=== PATIENT | female | born 1945 | race Caucasian/White ===

== ENCOUNTER 2021-10-23 15:28 | Outpatient (CLI) | payer MEDICARE, SELFPAY ==
[2021-10-23 17:56] LABS: Albumin* 4.5 g/dL (3.3-5.0); Chloride* 107 mmol/L (96-114)
[2021-10-23 17:57] LABS: Potassium* 4.3 mmol/L (3.6-5.1); Sodium* 141 mmol/L (135-149)
[2021-10-23 17:59] LABS: Carbon Dioxide* 26 mmol/L (20-32); Cholesterol* 203 mg/dL (90-199); Creatinine* 0.9 mg/dL (0.5-1.5); Estimated Glomerular Filt Rate 65 ml/min
[2021-10-23 18:00] LABS: Alanine Aminotransferase* 17 U/L (4-35); Alkaline Phosphatase* 60 U/L (40-150); Aspartate Amino Transferase* 32 U/L (12-35); Bilirubin Total* 0.8 mg/dL (0.1-1.5); Blood Urea Nitrogen* 25 mg/dL (7-30); Calcium* 9.5 mg/dL (8.4-10.6); Glucose* 105 mg/dL (60-115); HDL Cholesterol* 62 mg/dL (>=50); LDL Cholesterol Calculated 98 mg/dL (<100); Total Protein* 7.1 g/dL (6.0-8.3); Triglycerides* 215 mg/dL (40-149)
[2021-10-23 18:52] LABS: Vitamin B12* 431 pg/mL (243-894)
== END 2021-10-23 15:29 | disposition home or self-care (01) ==
PROVIDERS: PCP Internal Medicine; Visit Provider Internal Medicine
DX: Z00.00 Encounter for general adult medical examination without abnormal findings (principal); F43.20 Adjustment disorder, unspecified; Z13.6 Encounter for screening for cardiovascular disorders
CPT/HCPCS: 80053; 80061; 82607; 84443

== ENCOUNTER 2022-01-09 09:39 | Emergency (ER) | payer MEDICARE, SELFPAY ==
[2022-01-09 09:48] VITALS: BP 164/70; PULSE 75; RESP 18; TEMP 36.4; O2SAT 97; BMI 23.2
--- NOTE | 2022-01-09 10:05 | CRLHL7_ITS ---
For Patients: As a result of the Century Cures Act, medical imaging exams and procedure reports are released immediately into your electronic medical record. You may view this report before your referring provider. If you have questions, please contact your health care provider. INDICATION: Vomiting, history of breast cancer. TECHNIQUE: CT abdomen and pelvis with 66 cc Omnipaque 370 IV contrast. COMPARISON: None. FINDINGS: The liver is normal in size, shape and attenuation. Few scattered subcentimeter hypodense lesions throughout the liver which are too small to characterize. Gallbladder and biliary tree are normal. The spleen, adrenal glands and pancreas are within normal limits. The kidneys are unremarkable. Small hiatal hernia. The stomach is decompressed. No evidence of bowel obstruction. Scattered colonic diverticula with mild inflammation adjacent to few diverticula within the transverse colon concerning for acute diverticulitis. No evidence of rosalia perforation or adjacent abscess. No free air. Small amount of free fluid in the pelvis. Status post hysterectomy. The lower chest is unremarkable. Mild multilevel degenerative spondylosis without acute fracture. Small sclerotic lesions within the left ilium and left sacrum. IMPRESSION: Scattered colonic diverticula with mild inflammation adjacent to few diverticula within the transverse colon concerning for acute diverticulitis. No evidence of rosalia perforation or adjacent abscess. There is also some mild wall thickening in this area which may be reactive from diverticulitis but would recommend correlation with colonoscopy history to exclude underlying mass. Small sclerotic lesions within the left ilium and left sacrum. Few scattered subcentimeter hypodense lesions throughout the liver which are too small to characterize. The above-noted osseous and hepatic lesions are statistically favored to be benign but in the setting of cancer history a metastatic lesion cannot entirely be excluded. Recommend correlation with previous imaging if available. Continued attention on follow-up is recommended. Consider bone scan if there is concern for osseous metastasis. Small hiatal hernia. Please note that all CT scans at this facility use dose modulation, iterative reconstruction, and/or weight-based dosing when appropriate to reduce radiation dose to as low as reasonably achievable. Dictated by Chuckie Colvin MD @ 01/09/2022 12:20:57 PM (Electronically Signed)
--- NOTE | 2022-01-09 10:06 | ED_ITS ---
HPI - Nausea/Vomiting/Diarrhea General Chief complaint: Nausea/Vomiting Stated complaint: vomiting,nauseous Time Seen by Provider: 01/09/22 09:53 History of Present Illness HPI Narrative: This 76-year-old female comes in reporting nausea and vomiting over the past day and half for so. She has not had any fevers. She does not have diarrhea. She did have a brief episode of pain but this has resolved. She does have a dry mouth. She has been taking Pepto-Bismol daily for the past couple weeks and has noted that her tongue is black at times in her stools are dark related to this. She does not report any lightheadedness or shortness of breath. She does states that she feels something different in her mid abdomen at night when laying down. This has been present for the past few months. She states that it is not a painful thing but wonders what this might be. Related Data Home Medications Medication Instructions Recorded Confirmed calcium carb-magnesium carb 1 tab PO DAILY 10/23/21 11/27/21 cholecalciferol (vitamin D3) 50 2,000 unit PO DAILY 10/23/21 11/27/21 mcg (2,000 unit) tablet ibuprofen 200 mg capsule 200 mg PO .Q6h Prn 10/23/21 11/27/21 Previous Rx's Medication Instructions Recorded fluoxetine 10 mg tablet 10 mg PO QAM #90 tabs 10/23/21 ciprofloxacin HCl 500 mg tablet 500 mg PO BID #10 tabs 01/09/22 (Cipro) metronidazole 500 mg tablet 500 mg PO BID 10 days #20 tabs 01/09/22 ondansetron 4 mg disintegrating 4 mg PO Q6H #20 tabs 01/09/22 tablet trazodone 50 mg tablet 50 mg PO QHS #30 tabs 01/09/22 Allergies Allergy/AdvReac Type Severity Reaction Status Date / Time No Known Allergies Allergy Unverified 01/09/22 11:46 Review of Systems Status of ROS: Reports: 10 or more systems reviewed and unremarkable except as noted in History and below Narrative: Constitutional: No fevers, no weight gain or loss. Eyes: No discharge. No vision changes. HENT: No congestion, no sore throat, no ear pain. Cardiovascular: No chest pain, no palpitations. Respiratory: No shortness of breath, no wheezes, no cough. Gastrointestinal: No abdominal pain, no diarrhea. Nausea and vomiting. Genitourinary: No dysuria, no hematuria. Musculoskeletal: Normal range of motion. Skin: No rashes, no pruritis. Neurological: No dizziness, weakness, sensory change, speech change. Endo/Heme/Allergies: No bruising or bleeding. No polydipsia. Pysch: no suicidality, no anxiety, no insomnia. All other systems reviewed and are negative. [facility] Medical History (Updated 01/09/22 @ 13:48 by Perez Loera MD) History of breast cancer Surgical History (Updated 10/23/21 @ 15:08 by Siria Johnson MD) History of appendectomy (1994) History of bilateral cataract extraction (~2018) History of breast biopsy (03/19/11) History of tonsillectomy (03/19/11) History of total hysterectomy with bilateral salpingo-oophorectomy (BSO) (1994) Status post bilateral mastectomy (2015) Social History Smoking Status: Never smoker Do you use any of these nicotine containing products: None How often do you have a drink containing alcohol: never AUDIT-C Alcohol total score: 0 Non-prescribed substance use: denies use Little interest or pleasure in doing things: not at all Feeling down, depressed, or hopeless: several days Exam Narrative: Exam Narrative: Constitutional: Well-developed, well-nourished, no acute distress. HEENT: Normocephalic, atraumatic. Neck: Normal range of motion. Nontender. Supple. Heart: Regular. No murmurs. Normal rate. Intact distal pulses. Lungs: Clear to auscultation. No chest discomfort. No wheezes, rhonchi, or rales. Abdomen: Normal bowel sounds. Nontender. No rebound tenderness. Genitalia: Deferred. Back: No midline tenderness. Normal range of motion. Extremities: Normal range of motion. No injury. Skin: Intact. No rash. Warm. No erythema or pallor. Neurologic: No altered sensation. No weakness. Alert and oriented. Psychiatric: No suicidality. No anxiety or depression. No insomnia. Nursing notes and vitals signs are reviewed. Const: Vital Signs, click to edit/add: Vital Signs - 24 hr 01/09/22 09:48 Temperature 97.5 F L Pulse Rate [Right Pulse Oximeter] 75 Respiratory Rate 18 Blood Pressure [Ri ght Upper Arm] 164/70 H Pulse Oximetry 97 Oxygen Delivery Me thod Room Air Course Vital Signs Vital signs: Initial Vital Signs Temperature 97.5 F L 01/09/22 09:48 Temperature Source Temporal Artery Scan 01/09/22 09:48 Pulse Rate 75 01/09/22 09:48 Respiratory Rate 18 01/09/22 09:48 Blood Pressure 164/70 H 01/09/22 09:48 Blood Pressure Mean 101 01/09/22 09:48 Blood Pressure Position Sitting 01/09/22 09:48 Pulse Oximetry 97 01/09/22 09:48 Oxygen Delivery Method 01/09/22 09:48 Vital Signs Temperature 97.5 F L 01/09/22 09:48 Pulse Rate 75 01/09/22 09:48 Respiratory Rate 18 01/09/22 09:48 Blood Pressure 164/70 H 01/09/22 09:48 Pulse Oximetry 97 01/09/22 09:48 Oxygen Delivery Method 01/09/22 09:48 Temperature 97.5 F L 01/09/22 09:48 Pulse Rate 75 01/09/22 09:48 Respiratory Rate 18 01/09/22 09:48 Blood Pressure 164/70 H 01/09/22 09:48 Pulse Oximetry 97 01/09/22 09:48 Oxygen Delivery Method 01/09/22 09:48 MDM - Nausea/Vomiting/Diarrhea MDM Narrative Medical decision making narrative: This patient comes in with nausea and vomiting for the past several days. An IV was established where she received a total of 2 L of normal saline. She also received Zofran which brought relief to her nausea and vomiting. Lab results returned with normal white count. A CT scan of the abdomen and pelvis returns with some findings suggestive of acute diverticulitis. The patient really does not have abdominal pain and other symptoms more typical of diverticulitis. Ad ditionally she has a normal white count. I did prescribe Cipro and Flagyl to attend to these findings and hopefully it will help her feel better with her current symptoms. She also received prescription for Zofran. She was reporting problems with insomnia and has been using [id number] medicines with some undesirable side effects of feeling jittery in the morning. I did prescribe some tablets of trazodone and advised her to follow-up with her primary physician in this regard. Lab Data Labs: Lab Results 01/09/22 01/09/22 Range/Units 10:25 10:25 WBC 6.79 (4.50-11.00) K/uL RBC 4.67 (4.00-5.20) m/uL Hgb 14.6 (12.0-16.0) gm/dL Hct 43.3 (33.0-51.0) % MCV 93 (80-100) fL MCH 31 (26-34) pg MCHC 34 (32-36) gm/dL RDW Coeff of Tani 11.5 (11.5-15.5) % Plt Count 184 (140-440) K/uL Neut % (Auto) 82.5 H (42.0-72.0) % Lymph % (Auto) 11.8 L (20-44) % Nicholas % (Auto) 5.3 (0.0-11.0) % Eos % (Auto) 0.0 (0.0-7.0) % Baso % (Auto) 0.3 (0.0-3.0) % Neut # (Auto) 5.60 (1.7-7.0) K/uL Lymph # (Auto) 0.80 L (0.90-2.90) K/uL Nicholas # (Auto) 0.40 (0.00-0.90) K/UL Eos # (Auto) 0.00 (0.00-0.50) K/uL Baso # (Auto) 0.02 (0.00-0.30) K/uL Abs Immat Gran (auto) 0.01 (0.00-0.30) K/uL Sodium 140 (135-149) mmol/L Potassium 3.7 (3.6-5.1) mmol/L Chloride 106 (96-114) mmol/L Carbon Dioxide 24 (20-32) mmol/L BUN 22 (7-30) mg/dL Creatinine 0.7 (0.5-1.5) mg/dL Estimated Creat Clear 40.04 Estimated GFR 88 ml/min Glucose 114 (60-115) mg/dL Calcium 9.7 (8.4-10.6) mg/dL Total Bilirubin 1.8 H (0.1-1.5) mg/dL Direct Bilirubin 0.0 (0.0-0.5) mg/dL AST 38 H (12-35) U/L ALT 24 (4-35) U/L Alkaline Phosphatase 58 (40-150) U/L Total Protein 7.3 (6.0-8.3) g/dL Albumin 4.6 (3.3-5.0) g/dL Imaging Data CT scan - abdomen: Radiologist's impression: Scattered colonic diverticula with mild inflammation adjacent to few diverticula within the transverse colon concerning for acute diverticulitis. No evidence of rosalia perforation or adjacent abscess. There is also some mild wall thickening in this area which may be reactive from diverticulitis but would recommend correlation with colonoscopy history to exclude underlying mass. Small sclerotic lesions within the left ilium and left sacrum. Few scattered subcentimeter hypodense lesions throughout the liver which are too small to characterize. The above-noted osseous and hepatic lesions are statistically favored to be benign but in the setting of cancer history a metastatic lesion cannot entirely be excluded. Recommend correlation with previous imaging if available. Continued attention on follow-up is recommended. Consider bone scan if there is concern for osseous metastasis. Small hiatal hernia. Discharge Plan Discharge Clinical Impression: Insomnia, Diverticulitis Patient Disposition: Home, Self-Care Condition: Stable Additional Instructions: Take medications as prescribed. Increase diet as tolerated. Follow up with MD or return if worsening. Prescriptions: New ciprofloxacin HCl [Cipro] 500 mg tablet 500 mg PO BID Qty: 10 0RF metronidazole 500 mg tablet 500 mg PO BID 10 Days Qty: 20 0RF ondansetron 4 mg tablet,disintegrating 4 mg PO Q6H Qty: 20 0RF trazodone 50 mg tablet 50 mg PO QHS Qty: 30 2RF No Action cholecalciferol (vitamin D3) 50 mcg (2,000 unit) tablet 2,000 unit PO DAILY Rx Instructions: On hold ibuprofen 200 mg capsule 200 mg PO .Q6h Prn calcium carb-magnesium carb 1 tab PO DAILY fluoxetine 10 mg tablet 10 mg PO QAM Qty: 90 3RF Follow Up/Referrals: Siria Johnson MD [Primary Care Provider] - Stand Alone Forms: [facility] Inst[facility]
--- OUTSIDE RECORDS SUMMARY | 2022-01-09 10:14 | XMS_ITS | Clinical Summary ---
:1945 Author Organization [employer] [facility] [place] [address] Care Team Providers Name Role Phone Siria Johnson MD Primary Care Provider Allergies No known active allergies Medications Medication Sig Dispensed Refills Start Date End Date Status letrozole (FEMARA) Take 2.5 mg by 0 Active 2.5 mg tablet mouth once daily. vitamin e 400 unit Take 400 Units by 0 Active capsule mouth once daily. calcium carbonate-mag Take 1 Tab by mouth 0 Active hydroxid 1,000-200 mg once daily. chew cholecalciferol Take 4,000 Units by 0 Active (VITAMIN D-3) 2,000 mouth once daily. unit capsule multivitamin (MVI) Take 1 tablet by 0 Active tablet mouth once daily. HYDROcodone-acetamino Take 1-2 tablets by 20 tablet 0 10/01/19 17 Active phen, 5-325 mg, mouth every 4 hours (NORCO) per if needed for Pain tabletIndications: Max acetaminophen Displacement of dose: 4000 mg in 24 breast implant, hrs. subsequent encounter ondansetron (ZOFRAN Place 1 tablet on 10 tablet 0 09/30/2016 Active ODT) 4 mg the tongue every 6 disintegrating hours if needed for tabletIndications: Nausea/Vomiting Displacement of (May take every 4-6 breast implant, hours.). 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 7 Social History Tobacco Use Types Packs/Day Years Used Date Never Smoker Alcohol Use Standard Drinks/Week Comments No 0 (1 standard drink = 0.6 oz pure alcoho l) Sex Assigned at Date Recorded Not on file Obstetrics History Last Filed Vital Signs Vital Sign Reading Time Taken Comments Blood Pressure 129/53 09/30/2016 11:45 AM CDT Pulse 78 09/30/2016 11:45 AM CDT Temperature 36.1 ??C (97 ??F) 09/30/2016 9:50 AM CDT Respiratory Rate 16 09/30/2016 11:45 AM CDT Oxygen Saturation 94% 09/30/2016 11:45 AM CDT Inhaled Oxygen Concentration - - Weight 57.9 kg (127 lb 10.3 oz) 09/30/2016 7:15 AM CDT Height 162.6 cm (5' 4) 09/30/2016 7:15 AM CDT Body Mass Index 21.91 09/30/2016 7:15 AM CDT Plan of Treatment Health Maintenance Due Date Last Done Comments COVID-19 vaccine series (#1) 1945 Tdap 06/24/1954 Depression screening for age 12+ 1955 Hepatitis C screening for age 18-79 06/24/1961 Tetanus booster 1963 Zoster (shingles) series for age 50+ (1 of 2) 06/24/1993 DEXA/DXA scan for age 65+ 06/24/2008 Pneumococcal series for age 65+ (1 - PCV) 06/24/2008 BMI (ht and wt on same day) for age 18+ 08/20/2017 08/21/19 17 Influenza for age 65+ 12/04/2021 Medical Devices Implanted Type Area Form Presser Device Shelf Model / Identifier Expiration Serial / Date Lot [id number] 225cc Memorygel Rnd High Smooth Silcn [[id number]] Left: [employer] [place] 12/02/2019 [id number] / Implanted: Qty: 1 on 05/20/2016 by Kyle Mendez MD at [facility] [employer] [id number] / Explanted: at [facility] (Quantity not on file) [id number] 325cc Memorygel Rnd High Smooth Silcn Left: [employer] [place] 01/08/2020 [id number] / Implanted: Qty: 1 on 09/30/2016 by Kyle Mendez MD at [facility] [employer] [id number] / Explanted: at [facility] (Quantity not on file) [id number] Results Not on filefrom Last 3 Months Insurance Payer Benefit Plan / Subscriber ID Effective Dates Phone Addre ss Type Group [employer] MEDIC[employer] [id number] 2016-Present [address] [place] [address] (Work) [id number] Advance Directives Latest Code Status on File Code Status Date Activated Date Inactivated Comments Full Code 09/30/2016 10:00 AM 09/30/2016 2:40 PM Full Code 09/30/2016 6:53 AM 09/30/2016 10:00 AM Full Code 05/20/2016 10:39 AM 05/20/2016 5:43 PM Full Code 05/20/2016 6:48 AM 05/20/2016 10:39 AM Care Teams Director Executive Communications Relationship Specialty Start Date End Date Siria Johnson MD PCP - General Internal Medicine 05/15/161999 [place], [place] [id number]
[2022-01-09] MEDS: 0.9 % SODIUM CHLORIDE 1000 ml 1,000 ML IV ×2 (10:31→12:44)
[2022-01-09] MEDS: ONDANSETRON 2 MG/ML inj 4 MG IVP (10:33)
[2022-01-09 10:48] VITALS: BP 148/67; PULSE 64; RESP 18; O2SAT 95
[2022-01-09 10:59] LABS: Albumin* 4.6 g/dL (3.3-5.0)
[2022-01-09 11:00] LABS: Chloride* 106 mmol/L (96-114); Potassium* 3.7 mmol/L (3.6-5.1); Sodium* 140 mmol/L (135-149)
[2022-01-09 11:01] LABS: Basophils Absolute Auto 0.02 K/uL (0.00-0.30); Basophils Percent Auto 0.3 % (0.0-3.0); Hematocrit 43.3 % (33.0-51.0); Hemoglobin* 14.6 gm/dL (12.0-16.0); Immature Granulocytes Abs Auto 0.01 K/uL (0.00-0.30); Lymphocytes Percent Auto 11.8 % (20-44); Mean Corpuscular HGB Conc 34 gm/dL (32-36); Mean Corpuscular Hemoglobin 31 pg (26-34); Mean Corpuscular Volume 93 fL (80-100); Monocytes Percent Auto 5.3 % (0.0-11.0); Neutrophils Percent Auto 82.5 % (42.0-72.0); Platelet Count* 184 K/uL (140-440); RDW Coefficient of Variation % 11.5 % (11.5-15.5); Red Blood Count 4.67 m/uL (4.00-5.20); White Blood Count* 6.79 K/uL (4.50-11.00)
[2022-01-09 11:02] LABS: Aspartate Amino Transferase* 38 U/L (12-35); Bilirubin Total* 1.8 mg/dL (0.1-1.5); Blood Urea Nitrogen* 22 mg/dL (7-30); Carbon Dioxide* 24 mmol/L (20-32); Creatinine* 0.7 mg/dL (0.5-1.5); Est. Creatinine Clearance* 40.04; Estimated Glomerular Filt Rate 88 ml/min; Total Protein* 7.3 g/dL (6.0-8.3)
[2022-01-09 11:03] LABS: Alanine Aminotransferase* 24 U/L (4-35); Alkaline Phosphatase* 58 U/L (40-150); Calcium* 9.7 mg/dL (8.4-10.6); Glucose* 114 mg/dL (60-115)
[2022-01-09 11:04] LABS: Slide Review Reflex No
[2022-01-09 12:00] VITALS: BP 140/59; RESP 18; O2SAT 94
[2022-01-09 13:30] VITALS: BP 138/66; RESP 18; O2SAT 96
== END 2022-01-09 14:07 | disposition home or self-care (01) ==
PROVIDERS: Emergency Provider Emergency Medicine Emergency Medical Services; PCP Internal Medicine
DX: G47.00 Insomnia, unspecified (principal); K57.92 Diverticulitis of intestine, part unspecified, without perforation or abscess without bleeding
CPT/HCPCS: 36415; 74177; 80048; 80076; 85025; 96374; 99284; 99285; J2405; J7030; Q9967

== ENCOUNTER 2022-01-11 03:25 | Emergency (ER) | payer MEDICARE, SELFPAY ==
[2022-01-11 03:50] VITALS: BP 163/77; PULSE 70; RESP 18; TEMP 36.7; O2SAT 99; BMI 24.0
[2022-01-11 04:00] VITALS: O2SAT 98
[2022-01-11] MEDS: 0.9 % SODIUM CHLORIDE 1000 ml 1,000 ML IV (04:15)
[2022-01-11] MEDS: LORazepam 2 MG/ML inj 0.5 MG IVP (04:15)
--- OUTSIDE RECORDS SUMMARY | 2022-01-11 05:07 | XMS_ITS | Clinical Summary ---
:1945 Author Organization [employer] [facility] [place] [address] Care Team Providers Name Role Phone Siria [...] 65+ 12/04/2021 Medical Devices Implanted Type Area Production Consultant Device Shelf Model / Identifier Expiration Serial / Date Lot [id number] 225cc Memorygel Rnd High Smooth Silcn [[id number]] Left: [employer] [place] 12/02/2019 [id number] / Implanted: Qty: 1 on 05/20/2016 by Kyle Mendez MD at [facility] [employer] [id number] / Explanted: at [facility] (Quantity not on file) [id number] 325cc Memorygel Rnd High Smooth Silcn Left: [employer] [place] 01/08/2020 [id number] / Implanted: Qty: 1 on 09/30/2016 by Kyle Mendez MD at [facility] [employer] [id number] / Explanted: at [facility] (Quantity not on file) [id number] Results Not on filefrom Last 3 Months Insurance Payer Benefit Plan / Subscriber ID Effective Dates Phone Addre ss Type Group [employer] MEDICARE [id number] 2016-Present [address] [place] [address] (Work) [id number] Advance Directives Latest Code Status on File Code Status Date Activated Date Inactivated Comments Full Code 09/30/2016 10:00 AM 09/30/2016 2:40 PM Full Code 09/30/2016 6:53 AM 09/30/2016 10:00 AM Full Code 05/20/2016 10:39 AM 05/20/2016 5:43 PM Full Code 05/20/2016 6:48 AM 05/20/2016 10:39 AM Care Teams Organ Pipe Maker Metal Relationship Specialty Start Date End Date Siria Johnson MD PCP - General Internal Medicine 05/15/161999 [place], [place] [id number]
--- NOTE | 2022-01-11 05:26 | CRLHL7_ITS ---
For Patients: As a result of the Century Cures Act, medical imaging exams and procedure reports are released immediately into your electronic medical record. You may view this report before your referring provider. If you have questions, please contact your health care provider. INDICATION: Epigastric pain. Previous history of bilateral mastectomy, hysterectomy, breast implants. COMPARISON: CT of the abdomen and pelvis from 01/09/2022. TECHNIQUE: CT examination of the chest, abdomen, and pelvis was performed with the uneventful intravenous administration of 69 cc of Isovue 370 while 3 mm thick axial sections were obtained from above the apices of the lungs through the symphysis pubis. Oral contrast was not administered. Please note that all CT scans at this facility use dose modulation, iterative reconstruction, and/or weight-based dosing when appropriate to reduce radiation dose to as low as reasonably achievable. FINDINGS: : In the chest, the lungs are clear with no sign of significant infiltrate or mass. There is excellent enhancement of the pulmonary arteries with no sign of pulmonary embolism. There is no sign of mediastinal or hilar mass or adenopathy. The heart is normal in appearance for the patient`s age. There is age appropriate appearance of the thoracic aorta and ascending great vessels. There is no sign of supraclavicular or axillary mass or adenopathy. Again seen are changes of bilateral mastectomy with bilateral breast implant placement. There is no sign of any leak from the implants. In the abdomen, the liver has stable appearance of a few small cysts. The liver is otherwise normal in appearance. The spleen, pancreas, and adrenals are normal in appearance. The kidneys are normal in appearance. The gallbladder is normal in appearance. The abdominal aorta is normal in caliber with no sign of dilatation. There is no sign of retroperitoneal mass or adenopathy. There is a stable small hiatal hernia. The rest of the stomach, loops of small bowel, and colon in the abdomen are otherwise normal in appearance. In the pelvis, the appendix is nonvisualized, but there is no sign of an inflammatory process in the area of the appendix. There is stable moderate sigmoid diverticulosis without evidence of diverticulitis. The previously seen minimal soft tissue stranding adjacent to the colonic diverticuli is no longer present, however there is a new small amount of free fluid in the pelvis, nonspecific. The loops of small bowel and rectum in the pelvis are otherwise normal in appearance. The uterus is again seen to be absent and the adnexal regions are normal in appearance. The urinary bladder is normal in appearance. There is no sign of pelvic or inguinal mass or adenopathy. There is no sign of free air or free fluid in the abdomen. There is no sign of free air or extraluminal air in the pelvis. There is no change in minimal posterior subluxation of L2 on L3 with mild L2-3 disc degenerative disease. Again seen is a mild inferior L1 endplate fracture. There is stable mild L3-4 and L4-5 disc degenerative disease. IMPRESSION: CT of the chest shows stable appearance of mastectomy and bilateral breast prosthesis placement. CT of the abdomen shows a stable small hiatal hernia. CT of the pelvis shows a mild sigmoid diverticulosis with no sign of diverticulitis. Resolution of previously seen minimal sigmoid diverticulitis. New small amount of free fluid in the pelvis, nonspecific. Please note that all CT scans at this facility use dose modulation, iterative reconstruction, and/or weight-based dosing when appropriate to reduce radiation dose to as low as reasonably achievable. Dictated by Jerry Whiting MD @ 01/11/2022 7:00:26 AM (Electronically Signed)
[2022-01-11 05:54] LABS: D Dimer Quantitative* 0.44 ug/ml (0.00-0.50)
[2022-01-11 06:09] LABS: Basophils Percent Auto 0.3 % (0.0-3.0); Eosinophils Percent Auto 0.7 % (0.0-7.0); Hematocrit 40.8 % (33.0-51.0); Hemoglobin* 13.8 gm/dL (12.0-16.0); Immature Granulocytes Pct Auto 0.7 %; Lymphocytes Percent Auto 21.4 % (20-44); Mean Corpuscular HGB Conc 34 gm/dL (32-36); Mean Corpuscular Hemoglobin 31 pg (26-34); Mean Corpuscular Volume 93 fL (80-100); Monocytes Percent Auto 8.7 % (0.0-11.0); Neutrophils Percent Auto 68.2 % (42.0-72.0); Platelet Count* 161 K/uL (140-440); RDW Coefficient of Variation % 11.4 % (11.5-15.5); Red Blood Count 4.41 m/uL (4.00-5.20); Slide Review Reflex No; White Blood Count* 5.85 K/uL (4.50-11.00)
[2022-01-11 06:10] LABS: Carbon Dioxide* 23 mmol/L (20-32); Chloride* 106 mmol/L (96-114); Potassium* 3.8 mmol/L (3.6-5.1); Sodium* 138 mmol/L (135-149)
[2022-01-11 06:11] LABS: Blood Urea Nitrogen* 17 mg/dL (7-30); Calcium* 9.5 mg/dL (8.4-10.6); Creatinine* 0.7 mg/dL (0.5-1.5); Est. Creatinine Clearance* 40.04; Estimated Glomerular Filt Rate 88 ml/min; Glucose* 110 mg/dL (60-115)
[2022-01-11 07:17] VITALS: BP 135/74; PULSE 74; RESP 18; TEMP 36.7; O2SAT 98
--- NOTE | 2022-01-11 07:57 | ED.GENADULT ---
HPI - General Adult General Date Seen: 01/11/22 Chief complaint: Nausea/Vomiting Source: patient, RN notes reviewed and old records reviewed Mode of arrival: ambulatory Limitations: no limitations History of Present Illness HPI narrative: Aleksandra is a very pleasant 76-year-old female with recent diagnosis of diverticulitis and past diagnosis of microscopic colitis comes to the emergency room for evaluation of continuing nausea. Patient notes that for a few months she has felt a firmness in her upper abdomen and that something was not quite right. She states that there is no pain but on WednesdayDecember 08 she started feeling not well. She describes her whole body not feeling right and nausea and vomiting. She notes that this continued on December 09 and she finally came to the Emergency on room on WednesdayDecember 10. At that time she had a CT with acute diverticulitis without perforation. She was started on Flagyl and Cipro on WednesdayDecember 11. Early this morning she notes that it was hard to sleep and that when she was lying on her left side she felt like there was a pulsation in her abdomen and wondered about an aneurysm. She notes that she felt like her heart was feeling funny as well. She does not describe chest pain nor shortness of breath. Last night she was able to eat a small amount of mashed potatoes and gravy. She has been trying to drink water. She has no appetite. She is describing shaking as well. She denies a fever. Related Data Home Medications Medication Instructions Recorded Confirmed calcium carb-magnesium carb 1 tab PO DAILY 10/23/21 01/11/22 cholecalciferol (vitamin D3) 50 2,000 unit PO DAILY 10/23/21 01/11/22 mcg (2,000 unit) tablet ibuprofen 200 mg capsule 200 mg PO .Q6h Prn 10/23/21 01/11/22 Previous Rx's Medication Instructions Recorded fluoxetine 10 mg tablet 10 mg PO QAM #90 tabs 10/23/21 ciprofloxacin HCl 500 mg tablet 500 mg PO BID #10 tabs 01/09/22 (Cipro) metronidazole 500 mg tablet 500 mg PO BID 10 days #20 tabs 01/09/22 ondansetron 4 mg disintegrating 4 mg PO Q6H #20 tabs 01/09/22 tablet trazodone 50 mg tablet 50 mg PO QHS #30 tabs 01/09/22 Allergies Allergy/AdvReac Type Severity Reaction Status Date / Time No Known Allergies Allergy Verified 01/11/22 06:17 Review of Systems Status of ROS: Reports: 10 or more systems reviewed and unremarkable except as noted in History and below Const: Reports: fatigue and malaise; Denies: fever or chills ENMT: Denies: throat pain, neck pain or difficulty swallowing Cardio: Reports: palpitations; Denies: chest pain, swelling of feet/ankles or shortness of breath with exertion Resp: Denies: shortness of breath, cough or wheezing GI: Reports: abdominal pain (Described more as a pressure), nausea and vomiting (No vomiting for 24 hours); Denies: diarrhea, constipation or difficulty swallowing : Denies: painful urination Musculo: Denies: back pain or neck pain Neuro: Denies: confusion, behavioral changes or slurred speech Endo: Reports: fatigue Allergy/Immuno: Denies: wheezing PFSH PFSH Medical History History of breast cancer Surgical History History of appendectomy (1994) History of bilateral cataract extraction (~2018) History of breast biopsy (03/19/11) History of tonsillectomy (03/19/11) History of total hysterectomy with bilateral salpingo-oophorectomy (BSO) (1994) Status post bilateral mastectomy (2015) Social History Smoking Status: Never smoker Do you use any of these nicotine containing products: None How often do you have a drink containing alcohol: never How often do you have six or more drinks on one occasion: Never AUDIT-C Alcohol total score: 0 Non-prescribed substance use: denies use Little interest or pleasure in doing things: not at all Feeling down, depressed, or hopeless: several days Exam Narrative: Exam Narrative: Candy is awake and oriented. She appears fatigued but nontoxic in appearance. Her oral cavity is with a tacky mucous membranes. Neck is supple. Heart with regular rate and rhythm with occasional additional systole with compensatory pause. Lungs are clear bilaterally abdomen shows some discomfort with pressure over the epigastrium. Bowel sounds are decreased but present. No rebound tenderness. Lower extremities with symmetrical pedal pulses. Palpation of the abdomen does show a pulsating aorta. I do not note that it is widened on my exam but pulse is palpated. Lower extremity strength and motor intact. Const: Vital Signs, click to edit/add: Vital Signs - 24 hr 01/11/22 03:50 01/11/22 03:50 01/11/22 04:00 Temperature 98.0 F 98.0 F Pulse Rate [Right Pulse Oximeter] 70 70 Respiratory Rate 18 18 Blood Pressure [Ri ght Upper Arm] 163/77 H 163/77 H Pulse Oximetry 99 99 98 Oxygen Delivery Me thod Room Air Room Air 01/11/22 07:17 Temperature 98.0 F Pulse Rate [Right Pulse Oximeter] 74 Respiratory Rate 18 Blood Pressure [Ri ght Upper Arm] 135/74 Pulse Oximetry 98 Oxygen Delivery Me thod Room Air Documenting provider has reviewed patient's vital signs: yes Course Course Hospital Course: At this time patient is noted to have resolution of vomiting but persistent nausea to the point were she is not able to take p.o.. She is also very shaky and has continued pressure in the epigastrium. We will recheck laboratory values, place an IV, give normal saline 1 L as well as Ativan 0.5 mg. Will also order EKG and troponin. Reevaluation(s) Reevaluation #1: Objectively patient appears to be doing much better after Ativan. She notes that she really does not feel much better overall but does think that the nausea is improved. She continues to have pressure in her epigastrium. At this time I am recommending repeat CT including chest abdomen and pelvis. Vital Signs Vital signs: Initial Vital Signs Temperature 98.0 F 01/11/22 03:50 Temperature Source Temporal Artery Scan 01/11/22 03:50 Pulse Rate 70 01/11/22 03:50 Pulse Rhythm 01/11/22 03:50 Pulse Strength 3+ Normal 01/11/22 03:50 Respiratory Rate 18 01/11/22 03:50 Blood Pressure 163/77 H 01/11/22 03:50 Blood Pressure Mean 105 01/11/22 03:50 Blood Pressure Position Sitting 01/11/22 03:50 Pulse Oximetry 99 01/11/22 03:50 Oxygen Delivery Method 01/11/22 03:50 Vital Signs Temperature 98.0 F 01/11/22 03:50 Pulse Rate 70 01/11/22 03:50 Respiratory Rate 18 01/11/22 03:50 Blood Pressure 163/77 H 01/11/22 03:50 Pulse Oximetry 99 01/11/22 03:50 Oxygen Delivery Method 01/11/22 03:50 Temperature 98.0 F 01/11/22 07:17 Pulse Rate 74 01/11/22 07:17 Respiratory Rate 18 01/11/22 07:17 Blood Pressure 135/74 01/11/22 07:17 Pulse Oximetry 98 01/11/22 07:17 Oxygen Delivery Method 01/11/22 07:17 Medical Decision Making MDM Narrative Medical decision making narrative: 1. Nausea-certainly this could be secondary to medications of Flagyl Cipro likely more Flagyl. I did offer switch to Augmentin knowing that patient CT showed rapid improvement of the diverticulitis. I think this is safe to do especially in light of reassuring laboratory values and no fever. Augmentin 875 p.o. b.i.d. x6 days is given via [employer]. Cannot guarantee that this will improve the nausea but will try. Patient should continue Zofran although she complains about the taste on her tongue. I did state that this could be taken with yogurt or water for dissolving in the stomach. Will also provide a small amount of Ativan 0.5 mg to be use q.8 hours p.r.n. nausea that is not relieved by Zofran. 2. Diverticulitis-currently resolved on CT today. I do recommend follow-up colonoscopy in 4-6 weeks. Patient states that she had a horrible experience with her previous colonoscopy in terms of the prep. My recommendation is to have a colonoscopy but she will be talking to her primary about this. 3. Disposition-patient is discharged home. Would recommend pushing fluids, including non water fluids, and soft foods. Return or seek medical attention for worsening symptoms. Medical Records Medical records reviewed: Yes I reviewed the patient's medical records Lab Data Lab results reviewed: Yes I reviewed the patient's lab results Labs: Lab Results 01/11/22 01/11/22 01/11/22 Range/Units 05:36 06:04 06:04 WBC 5.85 (4.50-11.00) K/uL RBC 4.41 (4.00-5.20) m/uL Hgb 13.8 (12.0-16.0) gm/dL Hct 40.8 (33.0-51.0) % MCV 93 (80-100) fL MCH 31 (26-34) pg MCHC 34 (32-36) gm/dL RDW Coeff of Tani 11.4 L (11.5-15.5) % Plt Count 161 (140-440) K/uL Neut % (Auto) 68.2 (42.0-72.0) % Lymph % (Auto) 21.4 (20-44) % Roane % (Auto) 8.7 (0.0-11.0) % Eos % (Auto) 0.7 (0.0-7.0) % Baso % (Auto) 0.3 (0.0-3.0) % Neut # (Auto) 4.00 (1.7-7.0) K/uL Lymph # (Auto) 1.30 (0.90-2.90) K/uL Roane # (Auto) 0.50 (0.00-0.90) K/UL Eos # (Auto) 0.00 (0.00-0.50) K/uL Baso # (Auto) 0.00 (0.00-0.30) K/uL Abs Immat Gran (auto) 0.00 (0.00-0.30) K/uL Imm/Tot Granulo (auto) 0.7 % D-Dimer Quant (PE/DVT) 0.44 (0.00-0.50) ug/ml Sodium 138 (135-149) mmol/L Potassium 3.8 (3.6-5.1) mmol/L Chloride 106 (96-114) mmol/L Carbon Dioxide 23 (20-32) mmol/L BUN 17 (7-30) mg/dL Creatinine 0.7 (0.5-1.5) mg/dL Estimated Creat Clear 40.04 Estimated GFR 88 ml/min Glucose 110 (60-115) mg/dL Calcium 9.5 (8.4-10.6) mg/dL Imaging Data CT Chest/Ab/Pelvis: Attestation: I have reviewed the pertinent imaging results. Radiologist's impression: CT of the chest shows stable appearance of mastectomy and bilateral breast prosthesis placement. CT of the abdomen shows a stable small hiatal hernia. CT of the pelvis shows a mild sigmoid diverticulosis with no sign of diverticulitis. Resolution of previously seen minimal sigmoid diverticulitis. New small amount of free fluid in the pelvis, nonspecific. ECG Data Attestation: I personally reviewed and interpreted this ECG as follows: Prior ECG tracings: not available for review Interpretation: EKG by my read shows sinus rhythm. No acute ST or T-wave changes. Normal IA and QT intervals. Discharge Plan Discharge Clinical Impression: Diverticulitis, Nausea Patient Disposition: Home, Self-Care Condition: Improved Additional Instructions: . Flagyl and Cipro. Start on Augmentin today. Take this twice a day for 6 days. Continue Zofran as needed for nausea-you may take it in yogurt and swallow it. It does not necessarily have to dissolve on the tongue to work. Ativan may be used as needed every 8 hours if nausea is persistent. Push fluids and soft bland foods. Do not just drink water-Gatorade, juice, 7 up also very acceptable alternatives. Follow-up with your primary MD to discuss a colonoscopy in 4-6 weeks. Prescriptions: No Action cholecalciferol (vitamin D3) 50 mcg (2,000 unit) tablet 2,000 unit PO DAILY Rx Instructions: On hold ibuprofen 200 mg capsule 200 mg PO .Q6h Prn calcium carb-magnesium carb 1 tab PO DAILY fluoxetine 10 mg tablet 10 mg PO QAM Qty: 90 3RF ciprofloxacin HCl [Cipro] 500 mg tablet 500 mg PO BID Qty: 10 0RF metronidazole 500 mg tablet 500 mg PO BID 10 Days Qty: 20 0RF ondansetron 4 mg tablet,disintegrating 4 mg PO Q6H Qty: 20 0RF trazodone 50 mg tablet 50 mg PO QHS Qty: 30 2RF Follow Up/Referrals: Siria Johnson MD [Primary Care Provider] - Stand Alone Forms: [employer] Info Instructions
== END 2022-01-11 08:30 | disposition home or self-care (01) ==
PROVIDERS: Emergency Provider Family Medicine; PCP Internal Medicine
DX: K57.92 Diverticulitis of intestine, part unspecified, without perforation or abscess without bleeding (principal); R11.0 Nausea
CPT/HCPCS: 36415; 71260; 74177; 80048; 85025; 85379; 93005; 94761; 96361; 96374; 99284; J2060; J7030; Q9967

== ENCOUNTER 2022-01-29 13:04 | Outpatient (CLI) | payer MEDICARE, SELFPAY ==
--- OUTSIDE RECORDS SUMMARY | 2022-01-29 13:06 | XMS_ITS | Clinical Summary ---
:1945 Author Organization [employer] [facility] [place] [address] Care Team Providers Name Role Phone Siria [...] 65+ 12/04/2021 Medical Devices Implanted Type Area Concrete Saw Operator Device Shelf Model / Identifier Expiration Serial / Date Lot [id number] 225cc Memorygel Rnd High Smooth Silcn [[id number]] Left: [employer] [place] 12/02/2019 [id number] / Implanted: Qty: 1 on 05/20/2016 by Kyle Mendez MD at [facility] [employer] [id number] / Explanted: at [facility] (Quantity not on file) [id number] [id number] Memorygel Rnd High Smooth Silcn Left: [employer] [place] 01/08/2020 [id number] / Implanted: Qty: 1 on 09/30/2016 by Kyle Mendez MD at [facility] [employer] [id number] / Explanted: at [facility] (Quantity not on file) [id number] Results Not on filefrom Last 3 Months Insurance Payer Benefit Plan / Subscriber ID Effective Dates Phone Addre ss Type Group [employer] MEDICARE [id number] 2016-Present [address] [place] [address] (Work) [id number] Advance Directives Latest Code Status on File Code Status Date Activated Date Inactivated Comments Full Code 09/30/2016 10:00 AM 09/30/2016 2:40 PM Full Code 09/30/2016 6:53 AM 09/30/2016 10:00 AM Full Code 05/20/2016 10:39 AM 05/20/2016 5:43 PM Full Code 05/20/2016 6:48 AM 05/20/2016 10:39 AM Care Teams Sea Foam Kiss Maker Relationship Specialty Start Date End Date Siria Johnson MD PCP - General Internal Medicine 05/15/161999 [place], [place] [id number]
--- NOTE | 2022-01-29 13:15 | CRLHL7_ITS ---
For Patients: As a result of the 21st Century Cures Act, medical imaging exams and procedure reports are released immediately into your electronic medical record. You may view this report before your referring provider. If you have questions, please contact your health care provider. EXAM: PET-CT SKULL BASE TO THIGH CLINICAL INFORMATION: 76-yo female with a history of breast cancer. Prior bilateral mastectomy in 2016.. Patient is referred for further characterization. TECHNIQUE: Radiopharmaceutical: 11.92 mCi of 18F-FDG Uptake time: 61 minutes Blood glucose level at the time of injection: 107 mg/dL Field of view: Skull base to mid-thighs Intravenous contrast: Not administered Oral contrast: Not administered CT protocol: The low-dose, free-breathing, noncontrast CT performed as part of this study is designed for the purposes of attenuation correction and lesion localization, and it is neither sufficient, nor it should be substituted for diagnostic purposes. COMPARISON: CT chest abdomen pelvis 01/11/2022. CT abdomen pelvis 01/09/2022. Whole-body bone scan 07/04/2020 FINDINGS: Physiologic background liver standardized uptake value (SUV mean and SUV max) reported for comparison between PET studies: 2.5 and 2.9. No prior PET examinations available for comparison. Visualized head and neck: Physiologic uptake in the visualized portions of the brain. Small retention cyst/polyp right maxillary sinus. -low-density cyst/nodule left thyroid lobe with mild uptake, 1.0 cm, SUV max 1.4. Head and neck lymph nodes: No abnormal uptake. Lungs: No suspicious tracer avid pulmonary nodules or abnormal uptake. Dependent atelectasis. No consolidation. No pneumothorax. Thoracic lymph nodes: No hypermetabolic mediastinal, hilar or axillary lymph nodes. Other chest findings: Prior bilateral mastectomies with implant reconstruction. Linear distal esophageal uptake leads up to the GE junction with no definitive mass on noncontrast CT, SUV max 4.5. Uptake is nonspecific, possibly reactive/inflammatory or related to reflux. Hepatobiliary: No abnormal uptake. Small bilobar hypodense lesions demonstrate no significant uptake above physiologic background liver. Possible cysts though considered indeterminate. Spleen: No abnormal uptake. Pancreas: No abnormal uptake. Tiny hypodensity without suspicious uptake in the pancreatic head is too small to definitively characterize, 0.4 cm. Adrenals: No abnormal uptake. Kidneys and bladder: No abnormal uptake. Physiologically excreted tracer activity within the renal collecting system and urinary bladder. Bowel and peritoneum: No suspicious gastric or small bowel uptake. Retained contrast throughout the length of the colon. Scattered colonic diverticulosis without inflammatory change. Pelvic organs: Prior hysterectomy. No abnormal uptake. Abdominopelvic lymph nodes: No hypermetabolic abdominopelvic lymph nodes. Musculoskeletal, soft tissues, skin: No suspicious osseous lesions or abnormal uptake. Small sclerotic lesions in the pelvis, sacrum and right pubic ramus demonstrate no suspicious uptake. Degenerative type uptake within the shoulders and spine. Chronic appearing deformity of the inferior endplate of L1. Other: Very mild aortoiliac atherosclerotic vascular calcifications. IMPRESSION: 1. Prior bilateral mastectomies with implant reconstruction. No abnormal uptake in the right breast/chest or axillary soft tissues suspicious for locally recurrent breast cancer. 2. Small hypodense liver lesions with no suspicious uptake above physiologic background liver possibly represent cysts though are considered indeterminate. 3. No distant sites of tracer avid metastatic disease in the neck, lungs or solid organs of the abdomen/pelvis. 4. No suspicious osseous lesions or abnormal bony uptake. Tiny sclerotic foci in the pelvis, sacrum and right pubic ramus demonstrate no abnormal uptake. 5. Linear distal esophageal uptake with no associated mass lesion or definite wall thickening on noncontrast CT. Uptake is nonspecific, possibly reactive/inflammatory or related to reflux. Correlate with symptoms with direct visualization as indicated. 6. Other nonacute findings as detailed in the body of the report. Dictated by Yonas Kerr MD @ 02/03/2022 12:08:35 AM (Electronically Signed)
== END 2022-01-29 13:05 | disposition home or self-care (01) ==
LOC: RAD 13:05
PROVIDERS: PCP Internal Medicine; Visit Provider Internal Medicine Hematology & Oncology
DX: C50.411 Malignant neoplasm of upper-outer quadrant of right female breast (principal); K76.9 Liver disease, unspecified
CPT/HCPCS: 78815; A9552

== ENCOUNTER 2022-02-09 11:58 | Emergency (ER) | payer MEDICARE, SELFPAY ==
[2022-02-09 12:11] VITALS: BP 135/63; PULSE 78; RESP 16; TEMP 35.9; O2SAT 97; BMI 22.7
--- NOTE | 2022-02-09 15:07 | ED.NURSE ---
pt left without being seen by doctor
--- OUTSIDE RECORDS SUMMARY | 2022-02-09 15:18 | XMS_ITS | Clinical Summary ---
:1945 Author Organization [employer] [facility] [place] [address] Care Team Providers Name Role Phone Siria [...] absence of both breasts and nipples 7 Encounters Date Type Specialty Care Team Description 02/06/2022 Telephone Tanner Waite MD Deann ointment Request from Last 3 Months Social History Tobacco Use Types Packs/Day Years [...] 09/30/2016 7:15 AM CDT Plan of Treatment Upcoming Encounters Date Type Specialty Care Team Description 04/10/2022 Office Visit Tanner Waite MD [address] [place] [phone] (Wo rk) Health Maintenance Due Date Last Done Comments COVID-19 vaccine series (#1) 1945 Tdap 06/24/1954 Depression screening for age 12+ 1955 Hepatitis C screening for age 18-79 06/24/1961 Tetanus booster 1963 Zoster (shingles) series for age 50+ (1 of 2) 06/24/1993 DEXA/DXA scan for age 65+ 06/24/2008 Medicare Wellness for age 65+ 06/24/2008 Pneumococcal series for age 65+ (1 - PCV) 06/24/2008 BMI (ht and wt on same day) for age 18+ 08/20/2017 08/21/19 17 Influenza for age 65+ 12/04/2021 Medical Devices Implanted Type Area Manager Willow Device Shelf Model / Identifier Expiration Serial / Date Lot [id number] 225cc Memorygel Rnd High Smooth Silcn [[id number]] Left: [employer] [place] 12/02/2019 [id number] / Implanted: Qty: 1 on 05/20/2016 by Kyle Mendez MD at [facility] [employer] 69 [id number] / Explanted: at [facility] (Quantity not on file) [id number] Memorygel Rnd High Smooth Silcn Left: [employer] [place] 01/08/2020 [id number] / Implanted: Qty: 1 on 09/30/2016 by Kyle Mendez MD at [facility] Breast [facility] 69 [id number] / Explanted: at [facility] (Quantity not on file) [id number] Results Not on filefrom Last 3 Months Insurance Payer Benefit Plan / Subscriber ID Effective Dates Phone Addre ss Type Group [employer] [place] [employer] MEDICARE [id number] 2016-Present [address] [place] [address] (Work) [phone] Advance Directives Latest Code Status on File Code Status Date Activated Date Inactivated Comments Full Code 09/30/2016 10:00 AM 09/30/2016 2:40 PM Full Code 09/30/2016 6:53 AM 09/30/2016 10:00 AM Full Code 05/20/2016 10:39 AM 05/20/2016 5:43 PM Full Code 05/20/2016 6:48 AM 05/20/2016 10:39 AM Care Teams Salt Miner Relationship Specialty Start Date End Date Siria Johnson MD PCP - General Internal Medicine 05/15/161999 [place] [address]
== END 2022-02-09 15:07 | disposition left against medical advice (07) ==
LOC: ED 14:43
PROVIDERS: PCP Internal Medicine
DX: Z53.21 Procedure and treatment not carried out due to patient leaving prior to being seen by health care provider (principal)
CPT/HCPCS: 99281

== ENCOUNTER 2022-02-16 13:21 | Emergency (ER) | payer MEDICARE, SELFPAY ==
[2022-02-16 13:34] VITALS: BP 135/68; PULSE 90; RESP 18; TEMP 36.6; O2SAT 100; BMI 22.7
--- NOTE | 2022-02-16 14:24 | ED_ITS ---
HPI - General Adult General Time Seen by Provider: 14:25 Date Seen: 02/16/22 Chief complaint: Nausea/Vomiting Stated complaint: Nauseous Time Seen by Provider: 02/16/22 13:45 Source: patient and RN notes reviewed Mode of arrival: ambulatory Limitations: no limitations History of Present Illness HPI narrative: Karina is a very delio worried 76-year-old female coming in with a multitude of concerns. She does have a history of breast cancer and did have recent follow- up with Dr. Arteaga, no reviewed. Her PET scan had some abnormalities, questionable area in the thyroid, lower esophagus with some changes. She is scheduled to see Dr. Waite for consultation on March 18. She has problems with ongoing nausea, diarrhea she has been taking Pepto-Bismol. Her tongue is abnormal, states she can not taste much, wonders if she has yeast. She had oral yeast years ago and took something and was gone within a day. She notes that she has to take the Pepto-Bismol daily to have formed stools otherwise they are mushy. There is no blood. She has had a history of diverticulitis. She has had multiple recent scans, she has a planned follow-up PET scan in April. She wonders if I could move this up. Reviewed with her that all of this does have radiation, it is best utilize appropriately and not overused. She had no fevers chills. Possible issues are reflux disease for her. She admits that she started taking some qogz-rlk-iodvpgc omeprazole and she has felt a bit better. She is not requiring any anti nausea medicines. There has been no fevers. She was on lying and read that bladder cancer could cause some of her symptoms. I reviewed with her that she had very recent PET scan that showed no evidence of that. She is wondering if I can possibly obtain the thyroid ultrasound for her. I reviewed with her that that is really not emergent thing, she has easy access to the [facility] and [facility] and can simply leave a message stating that she would like to get that ordered rather than waiting for a follow-up PET scan in April. We can do thyroid function studies on blood work today, she would like to do this. She also wonders about C difficile colitis. She states her stools are odorous. She also notes that she has lost 12 lb and is not trying but admits she really is not able to eat much due to her GI symptoms with no taste, nausea. She does admit that sometimes she feels food coming up or regurgitant symptoms. It has been suggested to her that she really should consider having scoping done. I do concur with that. In her history she also carries a history of microscopic colitis. I think both an EGD and colonoscopy really need to be considered in this patient. I have discussed with her doing stool studies just to rule out the C difficile as well as doing stool culture and ova/parasite. She can take these collection kits with her. I have reviewed with her stool really needs to be diarrheal though for these to be tested. Related Data Home Medications Medication Instructions Recorded Confirmed calcium carb-magnesium carb 1 tab PO DAILY 10/23/21 02/16/22 cholecalciferol (vitamin D3) 50 2,000 unit PO DAILY 10/23/21 02/16/22 mcg (2,000 unit) tablet ibuprofen 200 mg capsule 200 mg PO .Q6h Prn 10/23/21 02/16/22 lorazepam 1 mg tablet (Ativan) 1 mg PO QDAY PRN 01/13/22 02/16/22 Previous Rx's Medication Instructions Recorded fluoxetine 10 mg tablet 10 mg PO QAM #90 tabs 10/23/21 trazodone 50 mg tablet 50 mg PO QHS #30 tabs 01/09/22 fluconazole 150 mg tablet 150 mg PO ONCE #1 tab 02/16/22 Allergies Allergy/AdvReac Type Severity Reaction Status Date / Time No Known Allergies Allergy Verified 02/16/22 13:43 Review of Systems Status of ROS: Reports: 6 or more systems reviewed and unremarkable except as noted in History and below [facility] Surgical History History of appendectomy (1994) History of bilateral cataract extraction (~2018) History of breast biopsy (03/19/11) History of tonsillectomy (03/19/11) History of total hysterectomy with bilateral salpingo-oophorectomy (BSO) (1994) Status post bilateral mastectomy (2015) Social History Smoking Status: Never smoker Do you use any of these nicotine containing products: None How often do you have a drink containing alcohol: never How often do you have six or more drinks on one occasion: Never AUDIT-C Alcohol total score: 0 Non-prescribed substance use: denies use Little interest or pleasure in doing things: not at all Feeling down, depressed, or hopeless: several days Exam Const: Vital Signs, click to edit/add: Vital Signs - 24 hr 02/16/22 13:34 02/16/22 15:17 Temperature 97.8 F Pulse Rate [Right Pulse Oximeter] 90 77 Respiratory Rate 18 20 Blood Pressure [Ri ght Upper Arm] 135/68 103/46 L Pulse Oximetry 100 97 Oxygen Delivery Me thod Room Air Room Air Documenting provider has reviewed patient's vital signs: yes Common normals: no apparent distress, average body habitus, oriented x3, no limita tions, healthy appearing, alert and well nourished General appearance: cooperative, comfortable, well kempt, well developed and anxious HENMT: Common normals: normocephalic, head/scalp atraumatic, hearing grossly normal bilaterally, external ears normal, external nose normal, nasal mucous membranes and turbinates normal and moist oral mucous membranes Head and scalp: normocephalic and atraumatic Nose: external nose normal and nasal mucous membranes and turbinates normal External ear: external ears normal Other: Tongue has hairy coating, mostly whitish but there is some sense of areas of grayish to blackish discoloration. Eye: Common normals: PERRL, EOMs intact bilaterally, conjunctivae normal and no scleral icterus Conjunctiva: conjunctiva(e) normal Pupil: PERRL Neck & C-Spine: Common normals: full ROM, no lymphadenopathy, supple, no meningeal signs, no JVD and thyroid normal Thyroid: thyroid normal Resp: Common normals: normal respiratory effort, no retractions, no use of accessory muscles and clear to auscultation bilaterally Auscultation: clear to auscultation bilaterally Cardio: Common normals: no JVD, regular rate, regular rhythm, S1 normal heart sound, S2 normal heart sound, no gallops, no clicks and no murmurs Rate: regular rate Rhythm: regular rhythm Heart sounds: S1 normal and S2 normal GI: Common normals: Normal to inspection, nondistended, normoactive bowel sounds present, soft to palpation, non-tender, no hepatosplenomegaly and no masses Palpation: soft and no hepatosplenomegaly Neuro: Common normals: oriented x3 Sensorium/orientation: alert Meningeal signs: no meningeal signs Psych: Appearance: well kempt Course Reevaluation(s) Reevaluation #1: Have reviewed with patient that labs packed this 0.2 looking reassuring. She understands thyroid is not back and I will contact her this coming if it is abnormal. She knows I will not be back in until then. She would like to leave. I think that this is reasonable. She has questions about return of diarrhea her tongue. I have reviewed with her that her tongue looks like hairy tongue and would be concerned that this is stemming from Pepto-Bismol. She has been on it for almost 2 years. She might try something like Metamucil and p.r.n. Imodium if needed. I have reviewed with her she really needs to consider scopes. As far as the possibility of oral thrush complicating her symptoms, we can try treatment. She does not want to try the oral remedies. I will give her a Diflucan 150 mg x 1. I do think she needs to stop the Pepto-Bismol though. Time: 16:07 Vital Signs Vital signs: Initial Vital Signs Temperature 97.8 F 02/16/22 13:34 Temperature Source Temporal Artery Scan 02/16/22 13:34 Pulse Rate 90 02/16/22 13:34 Respiratory Rate 18 02/16/22 13:34 Blood Pressure 135/68 02/16/22 13:34 Blood Pressure Mean 90 02/16/22 13:34 Blood Pressure Position Sitting 02/16/22 13:34 Pulse Oximetry 100 02/16/22 13:34 Oxygen Delivery Method 02/16/22 13:34 Vital Signs Temperature 97.8 F 02/16/22 13:34 Pulse Rate 90 02/16/22 13:34 Respiratory Rate 18 02/16/22 13:34 Blood Pressure 135/68 02/16/22 13:34 Pulse Oximetry 100 02/16/22 13:34 Oxygen Delivery Method 02/16/22 13:34 Temperature 97.8 F 02/16/22 13:34 Pulse Rate 77 02/16/22 15:17 Respiratory Rate 20 02/16/22 15:17 Blood Pressure 103/46 L 02/16/22 15:17 Pulse Oximetry 97 02/16/22 15:17 Oxygen Delivery Method 02/16/22 15:17 Medical Decision Making Lab Data Lab results reviewed: Yes I reviewed the patient's lab results Labs: Lab Results 02/16/22 02/16/22 02/16/22 Range/Units 14:56 14:56 14:56 WBC 7.48 (4.50-11.00) K/uL RBC 4.03 (4.00-5.20) m/uL Hgb 12.8 (12.0-16.0) gm/dL Hct 37.8 (33.0-51.0) % MCV 94 (80-100) fL MCH 32 (26-34) pg MCHC 34 (32-36) gm/dL RDW Coeff of Tani 11.5 (11.5-15.5) % Plt Count 183 (140-440) K/uL Neut % (Auto) 72.7 H (42.0-72.0) % Lymph % (Auto) 16.4 L (20-44) % [place] % (Auto) 9.6 (0.0-11.0) % Eos % (Auto) 0.8 (0.0-7.0) % Baso % (Auto) 0.4 (0.0-3.0) % Neut # (Auto) 5.40 (1.7-7.0) K/uL Lymph # (Auto) 1.20 (0.90-2.90) K/uL [place] # (Auto) 0.70 (0.00-0.90) K/UL Eos # (Auto) 0.06 (0.00-0.50) K/uL Baso # (Auto) 0.03 (0.00-0.30) K/uL Abs Immat Gran (auto) 0.01 (0.00-0.30) K/uL Imm/Tot Granulo (auto) 0.1 % Sodium 139 (135-149) mmol/L Potassium 3.4 L (3.6-5.1) mmol/L Chloride 106 (96-114) mmol/L Carbon Dioxide 26 (20-32) mmol/L BUN 15 (7-30) mg/dL Creatinine 0.7 (0.5-1.5) mg/dL Estimated Creat Clear 40.04 Estimated GFR 88 ml/min Glucose 112 (60-115) mg/dL Lactate 0.6 (0.5-1.9) mmol/L Calcium 8.8 (8.4-10.6) mg/dL Total Bilirubin 0.7 (0.1-1.5) mg/dL AST 23 (12-35) U/L ALT 15 (4-35) U/L Alkaline Phosphatase 40 (40-150) U/L C-Reactive Protein 1.1 H (0.5-1.0) mg/dL Total Protein 6.5 (6.0-8.3) g/dL Albumin 4.0 (3.3-5.0) g/dL Lipase (23-300) U/L TSH (0.270-4.200) uIU/mL 02/16/22 02/16/22 Range/Units 14:56 14:56 WBC (4.50-11.00) K/uL RBC (4.00-5.20) m/uL Hgb (12.0-16.0) gm/dL Hct (33.0-51.0) % MCV (80-100) fL MCH (26-34) pg MCHC (32-36) gm/dL RDW Coeff of Tani (11.5-15.5) % Plt Count (140-440) K/uL Neut % (Auto) (42.0-72.0) % Lymph % (Auto) (20-44) % [place] % (Auto) (0.0-11.0) % Eos % (Auto) (0.0-7.0) % Baso % (Auto) (0.0-3.0) % Neut # (Auto) (1.7-7.0) K/uL Lymph # (Auto) (0.90-2.90) K/uL [place] # (Auto) (0.00-0.90) K/UL Eos # (Auto) (0.00-0.50) K/uL Baso # (Auto) (0.00-0.30) K/uL Abs Immat Gran (auto) (0.00-0.30) K/uL Imm/Tot Granulo (auto) % Sodium (135-149) mmol/L Potassium (3.6-5.1) mmol/L Chloride (96-114) mmol/L Carbon Dioxide (20-32) mmol/L BUN (7-30) mg/dL Creatinine (0.5-1.5) mg/dL Estimated Creat Clear Estimated GFR ml/min Glucose (60-115) mg/dL Lactate (0.5-1.9) mmol/L Calcium (8.4-10.6) mg/dL Total Bilirubin (0.1-1.5) mg/dL AST (12-35) U/L ALT (4-35) U/L Alkaline Phosphatase (40-150) U/L C-Reactive Protein (0.5-1.0) mg/dL Total Protein (6.0-8.3) g/dL Albumin (3.3-5.0) g/dL Lipase 173 (23-300) U/L TSH 2.940 (0.270-4.200) uIU/mL Critical Care Time Critical Care Time Critical Care Time: No Discharge Plan Discharge Clinical Impression: Abnormality of tongue, Nausea Condition: Stable Additional Instructions: 1. 4 your tongue, stop the Pepto-Bismol. I will send in a tablet of Diflucan to try. If your tongue is not returning to baseline over the next 2-4 weeks, follow-up with your primary care provider. 2. For the concern of thyroid findings on the PET scan, contact the [facility] in see if a thyroid ultrasound could be placed in outpatient orders for you. I have done a screening TSH blood test and will contact you on if it is abnormal; otherwise, you can presume that this test is normal. 3. For the concerning changes of the distal esophagus an your ongoing nausea issues, do wonder if this could be manifestations of reflux disease. Stay on the ryjv-uxi-lutdhbu omeprazole as you have stated you would like to do. You need to follow-up with gastroenterology as you are scheduled. 4. For the diarrhea, collect the stool studies within the next 1-2 days. Again, do think you need to have colonoscopy for your ongoing symptoms. Rather than Pepto-Bismol, can try some Metamucil and then some Imodium if really needed. Activity Level: Activity as Tolerated Discharge Diet: Regular Prescriptions: New fluconazole 150 mg tablet 150 mg PO ONCE Qty: 1 0RF No Action lorazepam [Ativan] 1 mg tablet 1 mg PO QDAY PRN cholecalciferol (vitamin D3) 50 mcg (2,000 unit) tablet 2,000 unit PO DAILY Rx Instructions: On hold ibuprofen 200 mg capsule 200 mg PO .Q6h Prn calcium carb-magnesium carb 1 tab PO DAILY fluoxetine 10 mg tablet 10 mg PO QAM Qty: 90 3RF trazodone 50 mg tablet 50 mg PO QHS Qty: 30 2RF Follow Up/Referrals: Siria Johnson MD [Primary Care Provider] - Stand Alone Forms: [facility] Info Instructions
--- OUTSIDE RECORDS SUMMARY | 2022-02-16 15:01 | XMS_ITS | Clinical Summary ---
:1945 Author Organization [facility] [place] [address] Care Team Providers Name Role Phone Siria [...] Telephone Tanner Waite MD Deann ointment Request 01/29/2022 Orders Only Scanner <No scans attac hed> 01/11/2022 Orders Only Scanner <No scans attac hed> from Last 3 Months Social History Tobacco [...] Encounters Date Type Specialty Care Team Description 03/18/2022 Office Visit Tanner Waite MD [address] [place], [place] [address] (Wo rk) Health Maintenance Due [...] 65+ 12/04/2021 Medical Devices Implanted Type Area Charge Accounts Audit Clerk Device Shelf Model / Identifier Expiration Serial / Date Lot [id number] 225cc Memorygel Rnd High Smooth Silcn [[id number]] Left: [employer] 12/02/2019 [id number] / Implanted: Qty: 1 on 05/20/2016 by Kyle Mendez MD at [facility] Breast [id number] / Explanted: at [facility] (Quantity not on file) [id number] 325cc Memorygel Rnd High Smooth Silcn Left: [employer] 01/08/2020 [id number] / Implanted: Qty: 1 on 09/30/2016 by Kyle Mendez MD at [facility] [employer] [id number] / Explanted: at [facility] (Quantity not on file) [id number] Procedures Procedure Name Priority Date/Time Associated Comments Diagnosis SCAN-PET SCAN 01/29/2022 12:00 Results fo r this AM CDT procedure are i n the results section. SCAN-CT INTERPRETATION 01/11/2022 12:00 AM CDT from Last 3 Months Results SCAN-PET SCAN (01/29/2022 12:00 AM CDT) Narrative This result has an attachment that is no t available. Scanner OTHER SCAN-CT INTERPRETATION (01/11/2022 12:00 AM CDT) Narrative This result has an attachment that is no t available. Scanner OTHER from Last 3 Months Insurance Payer Benefit Plan / Subscriber ID Effective Dates Phone Addre ss Type Group [employer] [id number] 2016-Present [address] [place] [address] (Work) [id number] Advance Directives Latest Code Status on File Code Status Date Activated Date Inactivated Comments Full Code 09/30/2016 10:00 AM 09/30/2016 2:40 PM Full Code 09/30/2016 6:53 AM 09/30/2016 10:00 AM Full Code 05/20/2016 10:39 AM 05/20/2016 5:43 PM Full Code 05/20/2016 6:48 AM 05/20/2016 10:39 AM Care Teams Vegetable Packer Relationship Specialty Start Date End Date Siria Johnson MD PCP - General Internal Medicine 05/15/161999 [place] [id number]
[2022-02-16 15:02] LABS: Lactate* 0.6 mmol/L (0.5-1.9)
[2022-02-16 15:04] LABS: Basophils Absolute Auto 0.03 K/uL (0.00-0.30); Basophils Percent Auto 0.4 % (0.0-3.0); Eosinophils Absolute Auto 0.06 K/uL (0.00-0.50); Eosinophils Percent Auto 0.8 % (0.0-7.0); Hematocrit 37.8 % (33.0-51.0); Hemoglobin* 12.8 gm/dL (12.0-16.0); Immature Granulocytes Abs Auto 0.01 K/uL (0.00-0.30); Immature Granulocytes Pct Auto 0.1 %; Lymphocytes Percent Auto 16.4 % (20-44); Mean Corpuscular HGB Conc 34 gm/dL (32-36); Mean Corpuscular Hemoglobin 32 pg (26-34); Mean Corpuscular Volume 94 fL (80-100); Monocytes Percent Auto 9.6 % (0.0-11.0); Neutrophils Percent Auto 72.7 % (42.0-72.0); Platelet Count* 183 K/uL (140-440); RDW Coefficient of Variation % 11.5 % (11.5-15.5); Red Blood Count 4.03 m/uL (4.00-5.20); White Blood Count* 7.48 K/uL (4.50-11.00)
[2022-02-16 15:14] LABS: Slide Review Reflex No
[2022-02-16 15:17] VITALS: BP 103/46; PULSE 77; RESP 20; O2SAT 97
[2022-02-16 15:21] LABS: Chloride* 106 mmol/L (96-114)
[2022-02-16 15:22] LABS: Potassium* 3.4 mmol/L (3.6-5.1); Sodium* 139 mmol/L (135-149)
[2022-02-16 15:24] LABS: Alkaline Phosphatase* 40 U/L (40-150); Aspartate Amino Transferase* 23 U/L (12-35); Bilirubin Total* 0.7 mg/dL (0.1-1.5); Carbon Dioxide* 26 mmol/L (20-32); Creatinine* 0.7 mg/dL (0.5-1.5); Est. Creatinine Clearance* 40.04; Estimated Glomerular Filt Rate 88 ml/min; Total Protein* 6.5 g/dL (6.0-8.3)
[2022-02-16 15:25] LABS: Alanine Aminotransferase* 15 U/L (4-35); Blood Urea Nitrogen* 15 mg/dL (7-30); Calcium* 8.8 mg/dL (8.4-10.6); Glucose* 112 mg/dL (60-115); Lipase* 173 U/L (23-300)
[2022-02-16 15:27] LABS: C Reactive Protein* 1.1 mg/dL (0.5-1.0)
[2022-02-17 11:57] LABS: CDIFFEPI 027 PRESUMPTIVE NEGATIVE (Negative)
[2022-02-17 12:06] LABS: C.Difficile POSITIVE (Negative)
--- NOTE | 2022-02-17 12:58 | ED.NURSE ---
Cdiff result positive. Dr. Day ordered Vancomycin 125mg PO QID x10 days. Patient contacted and informed of new rx and result. Pt states Dr. Bailey will be calling her on and that she does have a PCP f/u apt set up. Left voicemail at [facility] in [place] with new rx details.
== END 2022-02-16 16:33 | disposition home or self-care (01) ==
PROVIDERS: Emergency Provider Family Medicine; PCP Internal Medicine
DX: A04.72 Enterocolitis due to Clostridium difficile, not specified as recurrent (principal); R11.0 Nausea; R19.7 Diarrhea, unspecified; K14.3 Hypertrophy of tongue papillae
CPT/HCPCS: 36415; 80053; 83605; 83690; 84443; 85025; 86140; 87045; 87046; 87177; 87209; 87427; 87493; 99283; 99284

== ENCOUNTER 2022-02-23 13:21 | Outpatient (CLI) | payer MEDICARE, SELFPAY ==
--- NOTE | 2022-02-23 14:00 | CRLHL7_ITS ---
For Patients: As a result of the Century Cures Act, medical imaging exams and procedure reports are released immediately into your electronic medical record. You may view this report before your referring provider. If you have questions, please contact your health care provider. INDICATION: LOW DENSITY CYST/NODULE ON LEFT SIDE - NOTED ON RECENT PET SCAN COMPARISON: CT-PET 01/29/2022 TECHNIQUE: Cheng scale and color Doppler images were acquired of the thyroid gland. FINDINGS: The thyroid gland demonstrates mildly heterogeneous echogenicity and has a smooth outer contour. The right lobe measures 3.1 x 1.0 x 1.1 cm and the left lobe measures 3.9 x 1.2 x 1.2 cm in size. The isthmus measures 3 millimeters. Near isoechoic nodules within the left side of the isthmus measuring less than 1 cm. Near isoechoic nodule inferior pole left thyroid lobe measures 10 x 6 x 7 millimeters. Additional hypoechoic nodule inferior pole left thyroid lobe measuring 1.1 x 0.9 x 1.0 cm. These nodules did not demonstrate increased uptake on the recent PET scan. The color Doppler images demonstrate normal vascularity. There is no evidence of cervical lymphadenopathy or parathyroid mass. IMPRESSION: TR 3/TR 4 nodules measuring 1.1 cm or less. These could be followed up at yearly intervals as they do not meet criteria for FNA at this time. Dictated by Jose Yusuf MD @ 02/23/2022 4:13:04 PM (Electronically Signed)
== END 2022-02-23 13:22 | disposition home or self-care (01) ==
PROVIDERS: PCP Internal Medicine; Visit Provider Internal Medicine Hematology & Oncology
DX: E04.1 Nontoxic single thyroid nodule (principal)
CPT/HCPCS: 76536

== ENCOUNTER 2022-04-17 09:50 | Outpatient (CLI) | payer MEDICARE, SELFPAY ==
[2022-04-17 12:11] LABS: CDIFFEPI 027 PRESUMPTIVE NEGATIVE (Negative)
[2022-04-17 12:20] LABS: C.Difficile POSITIVE (Negative)
== END 2022-04-17 09:51 | disposition home or self-care (01) ==
LOC: NFLDREF 09:50
PROVIDERS: PCP Internal Medicine; Visit Provider Internal Medicine
DX: R19.7 Diarrhea, unspecified (principal)
CPT/HCPCS: 87493

== ENCOUNTER 2022-05-07 16:42 | Outpatient (CLI) | payer MEDICARE, SELFPAY ==
--- NOTE | 2022-05-07 17:00 | CRLHL7_ITS ---
For Patients: As a result of the Century Cures Act, medical imaging exams and procedure reports are released immediately into your electronic medical record. You may view this report before your referring provider. If you have questions, please contact your health care provider. INDICATION: Right breast cancer status post mastectomy. TECHNIQUE: Following IV injection of FDG with uptake of 62 minutes, noncontrast CT scan followed by a PET scan were acquired along the length of body from the head to the upper thighs. Noncontrast CT was used for anatomic localization and photon attenuation correction of the PET-CT scan. - Blood glucose level: 102. - FDG dose (mCi): 13.08. COMPARISON: 01/29/2022 PET-CT. FINDINGS: Head/Neck: No abnormal tracer uptake. - Chest: No abnormal tracer uptake. - Background liver parenchyma with SUV mean of 2.2. Rectosigmoid wall thickening with associated increased uptake. - Musculoskeletal: No tracer avid bone lesion. - CT findings: Status post bilateral mastectomy with implants. No focal lung consolidation, pleural effusion or pneumothorax. Small hypoattenuating hepatic foci are similar to prior. Hysterectomy. Diverticulosis. Rectosigmoid wall thickening. Small sclerotic bone islands in the sacrum, left iliac bone and right pubic body are unchanged. IMPRESSION : 1. No evidence of tracer avid residual, recurrent or metastatic disease. 2. Rectosigmoid wall thickening with associated increased uptake could be due to infectious/inflammatory colitis. Dictated by Jose Bernard MD @ 05/13/2022 4:01:44 PM (Electronically Signed)
== END 2022-05-07 16:43 | disposition home or self-care (01) ==
PROVIDERS: PCP Internal Medicine; Visit Provider Internal Medicine Hematology & Oncology
DX: C50.411 Malignant neoplasm of upper-outer quadrant of right female breast (principal)
CPT/HCPCS: 78815; A9552

== ENCOUNTER 2022-06-04 15:00 | Outpatient (RCR) | payer MEDICARE, SELFPAY ==
[2022-02-04 10:05] VITALS: BP 127/75; PULSE 77; RESP 16; TEMP 36.6; O2SAT 99
--- NOTE | 2022-04-24 10:04 | ONC.NURNOTE ---
Reviewed with pt's and approved contact, Jesús, regarding changes in [facility] program and transition of Dr. Arteaga to [facility] returning Spring 2022. Pt would like continue care here. Due for f/u 05/2022 with Pet Scan; appt not scheduled yet.
--- NOTE | 2022-05-05 13:44 | ONC.NURNOTE ---
Note left in back for MD stating patient cancelled her PET scan for May. Curb Builder talked with patient and explained rationale for PET scan and patient has decided to go ahead and do it.
--- NOTE | 2022-05-05 13:47 | ONC.NURNOTE ---
Patient given number to call and set-up PET scan.
== END 2022-08-03 23:59 | disposition home or self-care (01) ==
LOC: CCIC 15:00
PROVIDERS: PCP Internal Medicine; Visit Provider Nurse Practitioner Family
DX: C50.911 Malignant neoplasm of unspecified site of right female breast (principal); Z17.0 Estrogen receptor positive status [ER+]; M85.80 Other specified disorders of bone density and structure, unspecified site; M81.0 Age-related osteoporosis without current pathological fracture
CPT/HCPCS: 99212; 99213; 99214; 99215

== ENCOUNTER 2022-10-08 13:34 | Outpatient (RCR) | payer MEDICARE, SELFPAY | END 2023-04-06 23:59 | disposition home or self-care (01) | LOC: CCIC 13:34 | PROVIDERS: PCP Internal Medicine; Visit Provider Internal Medicine Hematology & Oncology | DX: Z08 Encounter for follow-up examination after completed treatment for malignant neoplasm (principal); Z85.3 Personal history of malignant neoplasm of breast; Z90.13 Acquired absence of bilateral breasts and nipples; M81.0 Age-related osteoporosis without current pathological fracture | CPT/HCPCS: 99212; 99214 ==

== ENCOUNTER 2022-10-27 09:30 | Outpatient (CLI) | payer MEDICARE, SELFPAY | END 2022-10-27 09:31 | disposition home or self-care (01) | LOC: NFLDREF 10-28 08:16 | PROVIDERS: PCP Internal Medicine; Referring Provider Internal Medicine; Visit Provider Internal Medicine | DX: M81.0 Age-related osteoporosis without current pathological fracture (principal); E04.1 Nontoxic single thyroid nodule; Z13.6 Encounter for screening for cardiovascular disorders | CPT/HCPCS: 80061; 82306 ==

== ENCOUNTER 2022-11-05 08:59 | Outpatient (CLI) | payer MEDICARE, SELFPAY ==
--- NOTE | 2022-11-05 09:15 | CRLHL7_ITS ---
For Patients: As a result of the Century Cures Act, medical imaging exams and procedure reports are released immediately into your electronic medical record. You may view this report before your referring provider. If you have questions, please contact your health care provider. Indication: right axilla palp lump Technique: Grayscale and color Doppler ultrasound of the right axilla performed. Comparison: CT PET 05/07/2022 Findings: A right axillary lymph node is present with normal morphology including normal central fatty hilum and thin hypoechoic cortex. Normal vascularity. The thin hypoechoic cortex measures 1 millimeters. The lymph node in total measures 2.7 x 0.7 x 1.7 cm. Impression: Morphologically normal right axillary lymph node. Dictated by Jose Yusuf MD @ 11/05/2022 9:37:20 AM (Electronically Signed)
== END 2022-11-05 09:00 | disposition home or self-care (01) ==
LOC: US 08:59
PROVIDERS: PCP Internal Medicine; Visit Provider Internal Medicine Hematology & Oncology
DX: R22.41 Localized swelling, mass and lump, right lower limb (principal); Z85.3 Personal history of malignant neoplasm of breast
CPT/HCPCS: 76882

== ENCOUNTER 2023-03-04 12:47 | Outpatient (CLI) | payer MEDICARE, SELFPAY ==
--- NOTE | 2023-03-04 13:00 | CRLHL7_ITS ---
For Patients: As a result of the Cures Act, medical imaging exams and procedure reports are released immediately into your electronic medical record. You may view this report before your referring provider. If you have questions, please contact your health care provider. INDICATION: Thyroid nodules. TECHNIQUE: Ultrasound thyroid with tobar-scale and color Doppler analysis. COMPARISON: February 23, 2022. FINDINGS: Right lobe: 4.3 x 1.4 x 1.3 cm. Lesion 1: None. Left lobe: 4.7 x 1.2 x 1.4 cm. Lesion 1: 1.0 x 0.7 x 10.6 cm, mixed, TR3. Lesion 2: 1.2 x 1.1 x 0.8 cm, solid, TR4. Isthmus: Unremarkable. Echotexture of the thyroid parenchyma is normal. Color Doppler analysis demonstrates normal vascularity. No evidence of lymphadenopathy or parathyroid mass. IMPRESSION: No changes from the prior exam. Stable left lobe nodules with a TI-RADS category of TR3 and TR4 respectively. - ACR TI-RADS [email or web address] TR1: Benign No FNA TR2: Not Suspicious No FNA TR3: Mildly Suspicious FNA if greater than or equal to 2.5 cm Follow if greater than or equal to 1.5 cm TR4: Moderately Suspicious FNA if greater than or equal to 1.5 cm Follow if greater than or equal to 1 cm TR5: Highly Suspicious FNA if greater than or equal to 1 cm Follow if greater than or equal to 0.5 cm Dictated by Patrick Perea MD @ 03/05/2023 11:30:36 AM (Electronically Signed)
== END 2023-03-04 12:48 | disposition home or self-care (01) ==
LOC: US 12:47
PROVIDERS: PCP Internal Medicine; Visit Provider Internal Medicine
DX: E04.1 Nontoxic single thyroid nodule (principal)
CPT/HCPCS: 76536

== ENCOUNTER 2023-10-14 14:52 | Outpatient (RCR) | payer MEDICARE, SELFPAY ==
--- NOTE | 2024-02-02 08:26 | ONC.NURNOTE ---
Patient was called by imaging to schedule the ultrasound ordered by Kyra Nunn for her ultrasound. Patient declined, stating that her PCP will order this. Order was cancelled by staff writer, and provider notified.
== END 2024-04-11 23:59 | disposition home or self-care (01) ==
LOC: CCIC 14:52
PROVIDERS: PCP Internal Medicine; Visit Provider Physician Assistant
DX: C50.911 Malignant neoplasm of unspecified site of right female breast (principal); Z17.0 Estrogen receptor positive status [ER+]; Z90.13 Acquired absence of bilateral breasts and nipples; E04.1 Nontoxic single thyroid nodule
CPT/HCPCS: 99214; G0463

== ENCOUNTER 2023-11-10 08:42 | Outpatient (CLI) | payer MEDICARE, SELFPAY ==
--- OUTSIDE RECORDS SUMMARY | 2023-11-14 07:08 | XMS_ITS | Clinical Summary ---
Author Organization [employer] [facility] Address [place], [place] [address] Care Team Providers Care Medical Office Worker Name Role Phone Siria Johnson MD Primary Care Provider [phone] Allergies No known active allergies Medications Medication Sig Dispensed Refills Start Date End Date Status letrozole (FEMARA) 2.5 mg tablet Take 2.5 mg by mouth once daily. Active vitamin e 400 unit capsule Take 400 Units by mouth once daily. Active calcium carbonate-mag hydroxid 1,000-200 mg chew Take 1 Tab by mouth once daily. Active cholecalciferol (VITAMIN D-3) 2,000 unit capsule Take 4,000 Units by mouth once daily. Active multivitamin (MVI) tablet Take 1 tablet by mouth once daily. Active ondansetron (ZOFRAN ODT) 4 mg disintegrating tabletIndications:Displ acement of breast implant, sequela Place 1 tablet on the tongue every 6 hours if needed for Nausea/Vomiting (May take every 4-6 hours.). 10 tablet 09/30/2016 Active omeprazole (PRILOSEC) 20 mg Delayed-Release capsule Take 1 Capsule (20 mg) by mouth once daily before a meal. 0 02/19/2022 Active FLUoxetine (PROZAC) 10 mg capsule Take 10 mg by mouth. 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 Social History Tobacco Use Types Packs/Day Years Used Date Smoking Tobacco: Never Smokeless Tobacco: Never Tobacco Cessation:Counseling Given: Yes Alcohol Use Standard Drinks/Week Comments No 0 (1 standard drink = 0.6 oz pur e alcohol) Social Connections Answer Date Recorded Frequency of Communication with Friends and Fami ly Not on file 02/19/2022 Sex and Gender Information Value Date Recorded Sex Assigned at Not on file Gender Identity Not on file Sexual Orientation Not on file Obstetrics History Last Filed Vital Signs Vital Sign Reading Time Taken Comments Blood Pressure 137/63 05/13/2022 1:30 PM [employer] Pulse 83 05/13/2022 1:30 PM [employer] Temperature 36.1 ??C (97 ??F) 09/30/2016 9:50 AM CDT Respiratory Rate 16 09/30/2016 11:45 AM CDT Oxygen Saturation 99% 05/13/2022 1:30 PM [employer] Inhaled Oxygen Concentration - - Weight 58.6 kg (129 lb 3.2 oz) 05/13/2022 1:30 P M [employer] Height 162.6 cm (5' 4) 09/30/2016 7:15 AM CDT Body Mass Index 22.18 09/30/2016 7:15 AM CDT Plan of Treatment Health Maintenance Due Date Last Done Comments Tdap 06/24/1956 Depression screening for age 12+ 1955 Zoster (shingles) series for age 50+ (1 of 2) 06/24/1962 Tetanus booster 1963 DEXA/DXA scan for age 65+ 06/24/2008 Medicare Wellness for age 65+ 06/24/2008 Pneumococcal series for age 65+ (1 of 1 - PCV) 06/24/2008 BMI (ht and wt on same day) for age 18+ 08/20/2017 08/20/2016 COVID-19 vaccine series ( season) 2022 03/25/2021, 06/04/2020, 05/14/2020 Influenza for age 65+ 12/05/2023 Medical Devices Implanted Type Area Cost Analyst Device Identifier Shelf Expiration Date Model / Serial / Lot [id number] 7breast 250cc Memorygel Rnd High Smooth Silcn [[id number]] Implanted:Qty: 1 on 05/20/2016 by Kyle Pulido MD at [facility] Explanted:at [facility] (Quantity not on file) Right: Breast [employer] 03/09/2019 [id number] # / [id number] 2breast 225cc Memorygel Rnd High Smooth Silcn [[id number]] Implanted:Qty: 1 on 05/20/2016 by Kyle Pulido MD at [facility] Explanted:at [facility] (Quantity not on file) Left: Breast [employer] 12/02/2019 [id number] # / [id number] 8breast 350cc Memorygel Rnd High Smooth Silcn Implanted:Qty: 1 on 09/30/2016 by Kyle Pulido MD at [facility] Explanted:at [facility] (Quantity not on file) Right: Breast [employer] 07/23/2020 [id number] # / [id number] 7breast 325cc Memorygel Rnd High Smooth Silcn Implanted:Qty: 1 on 09/30/2016 by yKle Pulido MD at [facility] Explanted:at [facility] (Quantity not on file) Left: Breast [employer] ([employer]) 01/08/2020 [id number] # / [id number] Advance Directives * Full Code (Latest Code Status on File) Date Activated Date Inactivated Comments 09/30/2016 10:00 AM 09/30/2016 2:40 PM * Full Code Date Activated Date Inactivated Comments 09/30/2016 6:53 AM 09/30/2016 10:00 AM * Full Code Date Activated Date Inactivated Comments 05/20/2016 10:39 AM 05/20/2016 5:43 PM * Full Code Date Activated Date Inactivated Comments 05/20/2016 6:48 AM 05/20/2016 10:39 AM Care Teams Medical Office Worker Relationship Specialty Start Date End Date Siria Johnson MD [address] [place] [address] PCP - General Internal Medicine 05/15/16
== END 2023-11-10 08:43 | disposition home or self-care (01) ==
LOC: NFLDREF 11-14 07:06
PROVIDERS: PCP Internal Medicine; Referring Provider Internal Medicine; Visit Provider Internal Medicine
DX: M81.0 Age-related osteoporosis without current pathological fracture (principal)
CPT/HCPCS: 82306

== ENCOUNTER 2024-05-04 10:17 | Outpatient (RCR) | payer MEDICARE, SELFPAY | END 2024-10-31 23:59 | disposition home or self-care (01) | LOC: CCIC 10:17 | PROVIDERS: PCP Internal Medicine; Visit Provider Physician Assistant | DX: C50.911 Malignant neoplasm of unspecified site of right female breast (principal); Z17.0 Estrogen receptor positive status [ER+]; E04.1 Nontoxic single thyroid nodule | CPT/HCPCS: 99213; G0463 ==

== ENCOUNTER 2024-05-09 09:43 | Outpatient (CLI) | payer MEDICARE, SELFPAY | END 2024-05-09 09:44 | disposition home or self-care (01) | PROVIDERS: PCP Internal Medicine; Visit Provider Internal Medicine | DX: I10 Essential (primary) hypertension (principal); M81.0 Age-related osteoporosis without current pathological fracture | CPT/HCPCS: 80048; 82306 ==

== ENCOUNTER 2025-03-08 09:46 | Outpatient (CLI) | payer MEDICARE, SELFPAY ==
--- NOTE | 2025-03-08 10:15 | CRLHL7_ITS ---
For Patients: As a result of the Century Cures Act, medical imaging exams and procedure reports are released immediately into your electronic medical record. You may view this report before your referring provider. If you have questions, please contact your health care provider. INDICATION: NONTOXIC THYROID NODULE COMPARISON: 03/04/2023 TECHNIQUE: Cheng scale and color Doppler images were acquired of the thyroid gland. FINDINGS: Solid hypoechoic nodule left thyroid lobe measures 12 x 10 x 10 millimeters, TR 4, previously measuring 12 x 8 x 10 millimeters. Smaller hypoechoic TR 4 nodules at the isthmus measure 4 x 2 x 3 millimeters and 5 x 2 x 3 millimeters. The right lobe measures 4.6 x 1.6 x 1.5 cm and the left lobe measures 5.0 x 1.1 x 1.5 cm in size. Isthmus measures 3.3 millimeters. The color Doppler images demonstrate normal vascularity. There is no evidence of cervical lymphadenopathy or parathyroid mass. IMPRESSION: Stable TR 4 nodule left thyroid lobe. Dictated by Jose Yusuf MD @ 03/08/2025 11:36:33 AM (Electronically Signed)
== END 2025-03-08 09:47 | disposition home or self-care (01) ==
LOC: US 09:47
PROVIDERS: PCP Internal Medicine; Visit Provider Internal Medicine
DX: E04.1 Nontoxic single thyroid nodule (principal)
CPT/HCPCS: 76536